=== PATIENT | female | born 1930 | race Caucasian/White ===

== ENCOUNTER 2019-03-12 07:45 | Emergency (ER) | payer MEDICARE ==
[~2019-03-12] VITALS: Ht 157.5 cm; Wt 60.3 kg
[~2019-03-12 07:45] MED LIST: ACET325T9 PO; HYDR-2155 PO; METR500T PO; MULT-629 PO; OMEG300C PO; ONDA4TAB10 SL; PANT40TA3 PO; SIMV40TA18 PO; SUCR1TAB35 PO; SULF1TAB24 PO; UBID60CA2 PO
--- NOTE | 2019-03-12 08:27 | PHYS DOC ---
Past History Past Medical History: Arrhythmia, Cancer, High Cholesterol Past Surgical History: Appendectomy, Cancer Surgery, Oophorectomy, Other Additional Past Surgical Histo: Left masectomy Smoking: Non-smoker Alcohol Use: None Drug Use: None Adult General Chief Complaint Chief Complaint: COUGH [facility] HPI Patient is an 89-year-old female who presents with complaint of cough and chest congestion for the last few days. Patient states the cough is gotten bad enough to the point where she is getting really sore in her ribs and her back when she coughs. She denies any fever. She indicates that nothing seems to be improving her symptoms. She denies any actual chest pain or shortness of breath. Patient does indicate that she was recently in contact with her daughter who had been sick and was diagnosed with walking pneumonia.[] Review of Systems Review of Systems Constitutional: Denies fever or chills [] Respiratory: Complains of cough without shortness of breath [] Cardiovascular: No additional information not addressed in HPI [] GI: Denies abdominal pain, nausea, vomiting, bloody stools or diarrhea [] Musculoskeletal: Complains of mid back pain [] Neurologic: Denies headache, focal weakness or sensory changes [] All other systems were reviewed and found to be within normal limits, except as documented in this note. Allergies Allergies Allergies Coded Allergies Type Severity Reaction Last Updated Verified Influenza Virus Vaccines Allergy Intermediate Rash 09/29/15 Yes Penicillins Allergy Intermediate Rash 09/29/15 Yes pneumococcal vaccine Allergy Intermediate Rash 09/29/15 Yes Physical Exam Physical Exam Constitutional: Well developed, well nourished, no acute distress, non-toxic appearance. [] HENT: Normocephalic, atraumatic, bilateral external ears normal, oropharynx moist, no oral exudates, nose normal. [] Cardiovascular: Regular rate and rhythm[] Lungs & Thorax: There are fine rhonchi noted bilaterally to auscultation [] Abdomen: Bowel sounds normal, soft, no tenderness. [] Skin: Warm, dry, no erythema, no rash. [] Extremities: No tenderness, no cyanosis, no clubbing, ROM intact. [] Neurologic: Alert and oriented X 3, no focal deficits noted. [] Current Patient Data Vital Signs Vital Signs Date Time Temp Pulse Resp B/P (MAP) Pulse Ox O2 Delivery O2 Flow Rate FiO2 03/12/19 07:53 99.1 88 16 98 Room Air EKG EKG [] Radiology/Procedures Radiology/Procedures [] Impressions: PROCEDURE: CHEST PA & LATERAL EXAM: PA and Lateral Views of the Chest DATE: 03/12/2019 8:02 AM INDICATION: Cough COMPARISON: No Prior FINDINGS: The heart is not enlarged. Aortic calcifications are seen. Patchy opacities medial left lung base likely atelectasis. No lobar consolidation. No pleural effusion or pneumothorax. Minimal biapical pleural/parenchymal scarring/thickening. IMPRESSION: 1. Minimal patchy opacities left lung base likely atelectasis. No lobar consolidation. Electronically signed by: Rigoberto Vásquez MD (03/12/2019 8:24 AM) [id number] Course & Med Decision Making Course & Med Decision Making Pertinent Labs and Imaging studies reviewed. (See chart for details) [] Dragon Disclaimer Dragon Disclaimer This electronic medical record was generated, in whole or in part, using a voice recognition dictation system. Departure Departure: Impression: Primary Impression: Acute bronchitis Disposition: HOME, SELF-CARE Condition: STABLE Referrals: PCP,NO (PCP) Patient Instructions: Acute Bronchitis Scripts Guaifenesin/Codeine Phosphate (Codeine-Guaifen 10-100 mg/5 ml) 120 Ml Liquid 5 ML PO PRN Q6HRS PRN for cough and congestion MDD 20 Milliliter(s) for 6 Days, #120 ML 0 Refills Prov: LAUREN PINK Jr. DO 03/12/19 Azithromycin (ZITHROMAX) 250 Mg Tablet 1 PKG PO UD for infection, #6 TAB Prov: LAUREN PINK Jr. DO 03/12/19 Problem Qualifiers Primary Impression: Acute bronchitis Bronchitis organism: unspecified organism Qualified Codes: J20.9 - Acute bronchitis, unspecified LAUREN PINK Jr. DO Mar 12, 2019 08:27
[2019-03-12] MEDS ORDERED: GUAI120L35 PO (08:36)
[2019-03-12] MEDS ORDERED: AZIT250T PO (08:36)
[2019-03-12 08:44] VITALS: BP 164/89
[2019-03-12] MEDS ORDERED: AZITHROMYCIN 250 MG TABLET. PO ONE (09:00)
== END 2019-03-12 08:48 | disposition home or self-care (01) ==
LOC: ER 07:45
DX: J20.9 Acute bronchitis, unspecified (principal); E78.00 Pure hypercholesterolemia, unspecified; Z90.89 Acquired absence of other organs; Z90.722 Acquired absence of ovaries, bilateral; Z09 Encounter for follow-up examination after completed treatment for conditions other than malignant neoplasm; Z88.0 Allergy status to penicillin; Z88.7 Allergy status to serum and vaccine
CPT/HCPCS: 71046; 99284; J0456